=== PATIENT | male | born 1995 | race Caucasian/White ===

== ENCOUNTER 2017-07-08 06:35 | Emergency (ER) | payer SELFPAY ==
[~2017-07-08] VITALS: Ht 182.9 cm; Wt 109.2 kg
[2017-07-08 06:38] VITALS: BP 147/87
[2017-07-08 07:07] LABS: APPEARANCE CLEAR ((CLEAR)); BILIRUBIN NEGATIVE; BLOOD NEGATIVE; COLOR STRAW ((YELLOW)); GLUCOSE (STRIP) NEGATIVE; KETONES NEGATIVE; LEUKOCYTES NEGATIVE; NITRITE NEGATIVE; PROTEIN (STRIP) NEGATIVE; SPECIFIC GRAVITY 1.006 (1.000-1.030); UCUL ADDED? NO; UROBILINOGEN 0.2 MG/DL (0.2-1.0)
[2017-07-08 07:16] LABS: AMPHETAMINE NEGATIVE (500 ng/mL); BARBITURATES NEGATIVE (200 ng/mL); BENZODIAZEPINES NEGATIVE (150 ng/mL); BUPRENORPHINE NEGATIVE (10 ng/mL); COCAINE NEGATIVE (150 ng/mL); METHADONE NEGATIVE (200 ng/mL); METHAMPHETAMINE NEGATIVE (500 ng/mL); OPIATES (MORPHINE) NEGATIVE (100 ng/mL); OXYCODONE NEGATIVE (100 ng/mL); PHENCYCLIDINE NEGATIVE (25 ng/mL); PROPOXYPHENE NEGATIVE (300 ng/mL); THC CANNABINOIDS PRESUMPTIVE POSITIVE (50 ng/mL); TRICYCLIC ANTIDEPRESSANTS NEGATIVE (300 ng/mL)
[2017-07-08 07:46] LABS: HEMATOCRIT 42.7 % (38.0-50.0); MCH 30.7 PG (29.0-34.0); MCHC 35.1 G/DL (30.0-36.0); MCV 87.3 FL (86-99); PLATELET COUNT 266 K/uL (156-360); RBC DIS.WIDTH-CV 12.8 % (11.8-14.6); RED BLOOD COUNT 4.89 M/uL (4.00-5.50); WHITE BLOOD COUNT 12.7 K/uL (4.1-10.2)
[2017-07-08 08:21] LABS: ALBUMIN 4.4 G/DL (3.2-4.8); CHLORIDE 106 MEQ/L (99-109); POTASSIUM 3.8 MEQ/L (3.7-5.4); SODIUM 136 MEQ/L (136-147); TOTAL BILIRUBIN 0.6 MG/DL (0.0-1.0)
[2017-07-08 08:26] LABS: ALKALINE PHOSPHATASE 67 IU/L (3-129); ALT (GPT) 21 IU/L (3-49); AST (GOT) 27 IU/L (2-34); CREATININE 0.9 MG/DL (0.6-1.3); GFR ESTIMATE (CALCULATED) > 59 mL/min/ (58.99-99999); GLUCOSE 108 mg/dL (70-99); TOTAL PROTEIN 7.6 G/DL (6.4-8.3); UREA NITROGEN (BUN) 10 mg/dL (9-23)
== END 2017-07-08 08:44 | disposition home or self-care (01) ==
LOC: EME 06:35
PROVIDERS: Physician Assistant
DX: F12.129 Cannabis abuse with intoxication, unspecified (principal); F17.200 Nicotine dependence, unspecified, uncomplicated
CPT/HCPCS: 80053; 81003; 84999; 85027; 99281; 99283